=== PATIENT | male | born 1940 | race Caucasian/White ===

== ENCOUNTER 2016-12-08 20:03 | Emergency (ER) | payer OTHER ==
--- NOTE | ~2016-12-08 | CR142 ---
[facility] A Service of [facility] RADIOLOGY TEXT RESULTS PATIENT: LORY TORRES LOCATION: CFTX : 42 UNIT #: [id number] AGE: [address]: Melanie Goncalves APRN SEX: M ORDER DR: [id number] [facility] [address] [place], [place] [address] [id number] MR#: [id number] Acc #: [id number] NAME: LORY TORRES. : 1940 SEX: M STUDY DATE/TIME: 12/08/2016 23:33 UNIT: [facility] ROOM: STUDY DESCRIPTION: CR Hand Min 3 Views Rt Attending Physician: Melanie Goncalves A.P.R.N. Ordering Physician: Melanie Goncalves A.P.R.N. Primary Care Physician: No Primary Care Physician MEDICAL IMAGING REPORT This report is preliminary unless electronic signature is present EXAM Right hand, 3 views. HISTORY Hand pain and swelling. Puncture wound from cat bite yesterday. FINDINGS Three views of the right hand demonstrate soft tissue swelling over the dorsum of the hand. Bone alignment is normal. No fracture or dislocation. No opaque soft tissue foreign body. Mild degenerative changes in the wrist and hand. Dictated by... Rich Panda M.D. THIS IS AN ELECTRONICALLY VERIFIED REPORT Rich Panda M.D. at 12/09/2016 4:38 AM RICHARD/jordana TD: 12/09/2016 00:53 JOB #: [id number] MEDICAL IMAGING REPORT Page 1 of 1 COPY
[~2016-12-08 20:03] MED LIST: ACETAMINOPHEN PO; ALEVE; ALEVE220 M1 PO; AMARYL PO; ASPIRIN PO; ASPIRIN81 M1 PO; ASPIRIN81 M2 PO; ATORVASTATIN CA80 MG PO; BENZONATATE PO; BROMDAY1.7 ML OP; BROMDAY1.7 ML OS; CARVEDILOL6.25 MG PO; COREG PO; COREG6.25 MG PO; DEMEROL50 MG PO; DUREZOL5 ML OS; ELIQUIS5 MG PO; FISH OIL 1,0001 CAP PO; FLONASE16 GM; GLIMEPIRIDE2 MG PO; IMDUR PO; IMDUR-ER30 M1 PO; ISOSORBIDE MONO30 MG PO; LEVOTHYROXINE112 MCG PO; LEVOXYL PO; LIPITOR PO; LIPITOR40 MG PO; LISINOPRIL2.5 MG PO; LISINOPRIL20 MG PO; LOMOTIL TABLET1 TAB PO; LORTAB 5-325 M1 EACH PO; MICRO-K PO; PANTOPRAZOLE SO40 MG PO; PERCOCET5/325 PO; PHENERGAN PO; PROTONIX PO; SYNTHROID PO; SYNTHROID0.1 MG PO; VIGAMOX3 M1 OS; VITAMIN D 4001 UDTAB PO; VITAMIN D250000 UNIT PO; ZANTAC PO; ZOCOR PO; ZOCOR20 MG PO
[2016-12-08 23:24] LABS: BASOPHIL% 0.2 % (0-2.5); EOSINOPHIL# 0.1 X10e3 (0-0.7); EOSINOPHIL% 1.6 % (0.0-7.0); HEMATOCRIT 32.9 % (38.0-50.0); LYMPHOCYTE# 0.9 X10e3 (1.0-3.5); LYMPHOCYTE% 10.3 % (17.0-45.0); MEAN CELL VOLUME 80.4 FL (83-96); MEAN CORPUSCULAR HGB CONC 33.6 g/dL (30-36); MEAN PLATELET VOLUME 9.5 FL (6.5-11.5); MONOCYTE# 0.6 X10e3 (0-1.0); MONOCYTE% 7.5 % (3.0-12.0); NEUTROPHIL# 6.7 X10e3 (1.5-7.1); NEUTROPHIL% 80.4 % (40-75); RED BLOOD COUNT 4.09 X10e (3.90-5.60); RED CELL DISTRIBUTION WIDTH 17.1 % (11.0-15.5); WHITE BLOOD COUNT 8.3 X10e3 (4.0-10.5)
[2016-12-08 23:33] LABS: PROTHROMBIN TIME (PATIENT) 11.4 SECONDS (10.0-11.7)
[2016-12-08 23:34] LABS: PARTIAL THROMBOPLASTIN TIME 28.8 SECONDS (23.5-31.3)
[2016-12-08 23:36] LABS: BUN/CREATININE RATIO 23.33; CALCIUM SERUM 8.7 mg/dL (8.4-10.2); CREATININE SERUM 1.2 mg/dL (0.6-1.4); GLOM FILT RATE Estimated 58.8 mL/min (>60); POTASSIUM 3.6 mmol/L (3.5-5.1)
[2016-12-08 23:39] LABS: DIFF IND YES; PLATELET COUNT 88 X10e3 (140-420)
[2016-12-08 23:41] LABS: ANISOCYTOSIS SL; MICROCYTOSIS SL
[2016-12-08 23:42] LABS: HYPERSEGMENTED POLYS PRESENT; PLATELET ESTIMATE DECREASED (NORMAL); POIKILOCYTOSIS SL; TEAR DROP CELLS PRESENT
== END 2016-12-09 01:48 | disposition home or self-care (01) ==
LOC: CFTX 20:03 → CED 20:03 → CFTX 22:49
PROVIDERS: Nurse Practitioner
DX: L03.113 Cellulitis of right upper limb (principal); E11.9 Type 2 diabetes mellitus without complications; I10 Essential (primary) hypertension; E78.5 Hyperlipidemia, unspecified; K21.9 Gastro-esophageal reflux disease without esophagitis
CPT/HCPCS: 36415; 73130; 80048; 85025; 85610; 85730; 87040; 96361; 96365; 96367; 99283